=== PATIENT | male | born 1955 | race Caucasian/White ===

== ENCOUNTER 2019-12-23 16:17 | Emergency (ER) | payer OTHER ==
[~2019-12-23] VITALS: Ht 177.8 cm; Wt 120.2 kg
[2019-12-23] MEDS ORDERED: METFORMIN HCL500 M3 PO (16:25)
[2019-12-23] MEDS ORDERED: SIMVASTATIN80 MG PO (16:25)
[2019-12-23 16:41] LABS: ABSOLUTE BASOPHILS 0.1 thou/uL (0.0-0.2); ABSOLUTE LYMPHOCYTES 1.1 thou/uL (0.8-5.3); ABSOLUTE MONOCYTES 0.9 thou/uL (0.0-1.2); BASOPHILS 0.9 %; EOSINOPHILS 0.1 %; HEMATOCRIT 32.9 % (42.0-52.0); HEMOGLOBIN 11.2 gm/dL (14.0-18.0); LYMPHOCYTES 11.4 %; MCH 31.7 pg (26.0-34.0); MCHC 34.1 g/dL (28.0-37.0); MONOCYTES 8.5 %; MPV 7.7 fl. (7.2-11.1); NUCLEATED RBCS 0 /100WBC; PLATELET COUNT* 457 thou/uL (150-400); POLYS 79.1 %; RBC 3.54 mil/uL (4.50-6.00); RDW-CV 14.7 % (10.5-14.5); WBC 10.1 thou/uL (4.0-11.0)
[2019-12-23 16:56] LABS: CALCIUM 9.6 mg/dL (8.5-10.1); CREATININE 1.9 mg/dL (0.6-1.3); POTASSIUM 3.4 mmol/L (3.5-5.1)
[2019-12-23 17:06] LABS: ALBUMIN 3.9 g/dL (3.4-5.0); MAGNESIUM 1.4 mg/dL (1.8-2.4); TOTAL BILIRUBIN 0.5 mg/dL (<0.1-1.0)
[2019-12-23] MEDS ORDERED: PROTONIX40 M1 PO (18:00)
[2019-12-23 18:51] VITALS: BP 152/85
--- NOTE | 2019-12-24 10:07 | EKG ---
[place] [address] ELECTROCARDIOGRAM REPORT Name: SUMA RODRIGUEZ Room: [facility]#: [id number] Admission: 12/23/19 Attend Phys: Discharge: 12/23/19 Date of : 59 Date of Service: 12/23/19 1622 Report #: [id number] THIS REPORT FOR: //name// [facility] ED Test Date: 2019-12-23 Test Time: 16:22:37 Pat Name: SUMA RODRIGUEZ Department: Room: Gender: [employer]: [facility] : 1955 Requested By: Bryce Han Order Number: [id number] MD: Franklin Sparrow Measurements Intervals [place] Rate: 88 P: 43 MO: 123 QRS: -12 QRSD: 81 T: 33 QT: 373 QTc: 452 Interpretive Statements Sinus rhythm Brief sinus pause Abnormal R-wave progression, early transition No previous ECG available for comparison Electronically Signed On 12-24-2019 10:05:59 CDT by Franklin Sparrow [email or web address] <ELECTRONICALLY SIGNED> By: Franklin Sparrow MD, [facility] 12/24/19 1005 1622 21 Franklin Sparrow MD, FACC /EPI
== END 2019-12-23 18:51 | disposition home or self-care (01) ==
LOC: M.ERS 16:17
PROVIDERS: Emergency Medicine Emergency Medical Services
DX: R07.89 Other chest pain (principal); R11.2 Nausea with vomiting, unspecified; Z87.891 Personal history of nicotine dependence; Z88.6 Allergy status to analgesic agent